=== PATIENT | male | born 1990 | race Caucasian/White ===

== ENCOUNTER → 2017-01-05 | Day surgery (SDC) | payer BC ==
[~2017-01-05] VITALS: Ht 177.8 cm; Wt 85.3 kg
[2017-01-05 07:19] VITALS: BP 125/41; PULSE 76; TEMP 98
[2017-01-05 09:50] VITALS: BP 100/64; PULSE 64
[2017-01-05 10:05] VITALS: BP 108/56; PULSE 71
[2017-01-05 10:20] VITALS: BP 103/62; PULSE 65
[2017-01-05 10:35] VITALS: BP 113/62; PULSE 61
[2017-01-05 10:50] VITALS: BP 109/61; PULSE 63
== END ==
LOC: SDCO 06:22
DX: S93.325A Dislocation of tarsometatarsal joint of left foot, initial encounter (principal); S92.325A Nondisplaced fracture of second metatarsal bone, left foot, initial encounter for closed fracture; Z82.61 Family history of arthritis
CPT/HCPCS: C1713; J0690; J2250; J2405; J2704; J3010; J7120